=== PATIENT | female | born 1980 | race African-American/Black ===

== ENCOUNTER 2017-06-09 12:48 | Emergency (ER) | payer MEDICAID, OTHER ==
[~2017-06-09] VITALS: Ht 157.5 cm; Wt 110.0 kg
[~2017-06-09 12:48] MED LIST: ADVIR; ALBU17AE26; FLUT1DIS3; HYDR-1348; HYDR-1348 PO; LEVO500T15 PO; PRO AIR; PROAIR
[2017-06-09] MEDS ORDERED: KETOROLAC 60MG/2ML VIAL IM ONE (16:00)
[2017-06-09 16:11] VITALS: BP 108/75
== END 2017-06-09 18:38 | disposition home or self-care (01) ==
LOC: ER 15:52
DX: M79.641 Pain in right hand (principal); I10 Essential (primary) hypertension; Z90.49 Acquired absence of other specified parts of digestive tract
CPT/HCPCS: 29125; 73110; 73130; 96372; 99284; J1885; Z7610

== ENCOUNTER 2018-01-15 09:53 | Emergency (ER) | payer OTHER ==
[~2018-01-15] VITALS: Ht 157.5 cm; Wt 114.0 kg
[~2018-01-15 09:53] MED LIST changes: -LEVO500T15 PO; +LEVO500T2 PO
[2018-01-15] MEDS ORDERED: KETOROLAC 30MG/ML VIAL IV ONE (14:45)
[2018-01-15 15:07] LABS: BASOPHILS % 0.6 % (0.0-2.0); EOSINOPHILS % 0.5 % (0.0-5.0); HEMOGLOBIN. 11.4 g/dL (12.0-16.0); LYMPHOCYTES % 30.6 % (20.0-50.0); MEAN CORPUSCULAR VOLUME 79.1 fL (81.0-99.0); MEAN PLATELET VOLUME 8.2 fl (7.4-10.4); MONOCYTES % 6.4 % (2.0-8.0); NEUTROPHILS % 61.9 % (40.0-76.0); PLATELET 390 x1000/uL (130-400); RED BLOOD CELL COUNT 4.55 mill/uL (4.2-5.4); RED CELL DISTRIBUTION WIDTH 16.8 % (11.6-14.6)
[2018-01-15 15:18] LABS: CHLORIDE 105 mEq/L (98-107)
[2018-01-15 16:47] LABS: CLARITY URINE CLOUDY (CLEAR); COLOR URINE DARK YELLOW (YELLOW); KETONES URINE 1+ (NEGATIVE); LEUKOCYTE ESTERASE URINE TRACE (NEGATIVE); NITRITE URINE NEGATIVE (NEGATIVE); OCCULT BLOOD URINE NEGATIVE (NEGATIVE); PROTEIN URINE TRACE (NEGATIVE); SPECIFIC GRAVITY URINE 1.033 (1.005-1.030)
[2018-01-15] MEDS ORDERED: IBUPROFEN 600MG TABLET PO ONE (17:30)
[2018-01-15 18:14] VITALS: BP 125/76
[2018-01-15] MEDS ORDERED: IBUPROFEN 600MG TABLET ONE (18:17)
== END 2018-01-15 18:16 | disposition home or self-care (01) ==
LOC: ER 11:57
DX: D25.9 Leiomyoma of uterus, unspecified (principal); R42 Dizziness and giddiness; N39.0 Urinary tract infection, site not specified; R11.0 Nausea; I10 Essential (primary) hypertension; J45.909 Unspecified asthma, uncomplicated; Z79.899 Other long term (current) drug therapy; Z90.89 Acquired absence of other organs
CPT/HCPCS: 36415; 76830; 76856; 80053; 81003; 81025; 85025; 99285; J1885

== ENCOUNTER 2018-12-30 08:10 | Emergency (ER) | payer OTHER ==
[~2018-12-30] VITALS: Ht 157.5 cm; Wt 108.0 kg
[2018-12-30 08:11] VITALS: BP 180/100
== END 2018-12-30 11:40 | disposition left against medical advice (07) ==
LOC: ER 08:16
DX: R10.9 Unspecified abdominal pain (principal); Z53.21 Procedure and treatment not carried out due to patient leaving prior to being seen by health care provider